=== PATIENT | male | born 1950 | race Caucasian/White ===

== ENCOUNTER 2017-08-13 06:50 | Inpatient (IN) ==
[2017-08-07 13:16] LABS: Appearance,Urine CLEAR; Bilirubin,Urine NEG (NEG); Color,Urine YELLOW; Glucose,Urine (UA) NEGATIVE (NEG); Leukocyte Esterase,Urine NEG /uL (NEG); Nitrate,Urine NEG (NEG); Protein,Urine NEG (NEG); Specific Gravity,Urine 1.009 (1.000-1.035); Urine Blood NEG mg/dL (<0.03); Urobilinogen,Urine NEG (NEG)
[2017-08-07 14:00] LABS: Basophils # (Auto) 0 K/mcL (0.0-0.3); Basophils % (Auto) 0.2 % (0.0-2.0); Eosinophils # (Auto) 0.1 K/mcL (0.0-0.7); Eosinophils % (Auto) 0.7 % (0.0-7.0); Granulocytes % (Auto) 82.8 % (38.0-78.0); Lymphocytes # (Auto) 0.8 K/mcL (1.5-4.8); Lymphocytes % (Auto) 9.6 % (15.5-49.0); Mean Cell Volume 98.2 fL (80.0-100.0); Mean Corpuscular HGB Conc 33.9 g/dL (31.0-36.0); Mean Corpuscular Hemoglobin 33.3 pg (26.0-34.0); Monocytes # (Auto) 0.5 K/mcL (0.1-0.9); Monocytes % (Auto) 6.7 % (1.0-12.0); Platelet Count 172 K/mcL (140-440); RBC 4.44 M/mcL (4.50-5.90); Red Cell Distribution Width 15.6 % (11.5-14.5)
[2017-08-07 14:17] LABS: Blood Urea Nitrogen 31 mg/dl (8-23)
[~2017-08-13 06:50] MED LIST: ACETAMINOPHEN 500 MG TABLET PO SCH; CELECOXIB 200 MG CAPSULE PO SCH; PREGABALIN 75 MG CAPSULE PO SCH; ceFAZolin 1 GM VIAL IV SCH; oxyCODONE 10 MG TAB.ER.12H PO SCH
[2017-08-13] MEDS ORDERED: IPRATROPIUM/ALBUTEROL 3 ML AMPUL.NEB NEB ONE (09:16)
[2017-08-13] MEDS ORDERED: GENTAMICIN SULFATE 800 MG/20 ML VIAL IR ONE (09:18)
[2017-08-13] MEDS ORDERED: LIDOCAINE HCL/PF 100 MG/5 ML SYRINGE IV ONE (09:46)
[2017-08-13] MEDS ORDERED: fentaNYL 100 MCG/2 ML VIAL IV ONE (09:46)
[2017-08-13] MEDS ORDERED: PHENYLEPHRINE 10 MG/ML VIAL IV ONE (09:46)
[2017-08-13] MEDS ORDERED: TRANEXAMIC ACID 1,000 MG/10 ML VIAL IV ONE (09:46)
[2017-08-13] MEDS ORDERED: MIDAZOLAM 5 MG/5 ML VIAL IV ONE (09:46)
[2017-08-13] MEDS ORDERED: GLYCOPYRROLATE 0.2 MG/ML VIAL IV ONE (09:46)
[2017-08-13] MEDS ORDERED: ePHEDrine 50 MG/ML AMPUL IV ONE (09:46)
[2017-08-13] MEDS ORDERED: PROPOFOL 200 MG/20 ML VIAL IV ONE (09:46)
[2017-08-13] MEDS ORDERED: SUCCINYLCHOLINE 20 MG/ML ML IV ONE (09:46)
[2017-08-13] MEDS ORDERED: BUPIVACAINE PF 0.5% 30 ML VIAL IJ ONE (10:50)
[2017-08-13] MEDS ORDERED: fentaNYL 100 MCG/2 ML VIAL IV PRN (10:52)
[2017-08-13] MEDS ORDERED: PROMETHAZINE 25 MG/ML VIAL IV PRN (10:52)
[2017-08-13] MEDS ORDERED: IPRATROPIUM/ALBUTEROL 3 ML AMPUL.NEB NEB PRN (10:52)
[2017-08-13] MEDS ORDERED: MEPERIDINE 25 MG/ML SYRINGE IV PRN (10:52)
[2017-08-13] MEDS ORDERED: ePHEDrine 50 MG/ML AMPUL IV PRN (10:52)
[2017-08-13] MEDS ORDERED: diphenhydrAMINE 50 MG/ML VIAL IV PRN (10:52)
[2017-08-13] MEDS ORDERED: ATROPINE SULFATE 0.4 MG/ML VIAL IV PRN (10:52)
[2017-08-13] MEDS ORDERED: ACETAMINOPHEN 1,000 MG/100 ML BOTTLE IV ONE (10:52)
[2017-08-13] MEDS ORDERED: METOPROLOL TARTRATE 5 MG/5 ML VIAL IV PRN (10:52)
[2017-08-13] MEDS ORDERED: METHOCARBAMOL 1,000 MG/10 ML VIAL IV PRN (10:52)
[2017-08-13] MEDS ORDERED: ONDANSETRON 4 MG/2 ML VIAL IV PRN ×2 (10:52→10:54)
[2017-08-13] MEDS ORDERED: BENZOCAINE/MENTHOL 1 LOZENGE PO PRN ×2 (10:52→10:54)
[2017-08-13] MEDS ORDERED: FLUMAZENIL 0.1 MG/ML ML IV PRN (10:52)
[2017-08-13] MEDS ORDERED: NALOXONE HCL 0.4 MG/ML VIAL IV PRN (10:52)
[2017-08-13] MEDS ORDERED: POLYETHYLENE GLYCOL 3350 17 GM PACKET PO PRN (10:54)
[2017-08-13] MEDS ORDERED: FLEETS ADULT ENEMA PR PRN (10:54)
[2017-08-13] MEDS ORDERED: TRANEXAMIC ACID 1,000 MG/10 ML VIAL IV SCH (10:54)
[2017-08-13] MEDS ORDERED: MAGNESIUM HYDROXIDE 30 ML ORAL.SUSP PO PRN (10:54)
[2017-08-13] MEDS ORDERED: KETOROLAC 15 MG/ML VIAL IV PRN (10:54)
[2017-08-13] MEDS ORDERED: ACETAMINOPHEN 325 MG TABLET PO PRN (10:54)
[2017-08-13] MEDS ORDERED: BISACODYL 10 MG SUPP.RECT PR PRN (10:54)
[2017-08-13] MEDS ORDERED: HYDROmorphone 2 MG/ML SYRINGE IV PRN (10:54)
--- NOTE | 2017-08-13 10:54 | Brief Operative Note ---
Date of procedure: 08/13/17 Pre-op diagnosis: left shoulder rca and bicep tenodon tear Post-op diagnosis: same Procedure: Left shoulder reverse tsa and bicep tenodesis Grafts/Implants: Yes Anesthesia: GETA Complications: none Complications Description: 08/13/17 10:53 none Surgeon: Cali Mendez Hammer Driver: Donovan Pendleton Estimated blood loss (cc): 50 Tourniquet Time (Minutes): 0 Specimens Removed/Pathology: none sent Condition: stable Disposition: PACU
[2017-08-13] MEDS ORDERED: BACLOFEN 10 MG TABLET PO PRN (10:58)
[2017-08-13] MEDS ORDERED: NAPROXEN 500 MG TABLET PO PRN (10:58)
[2017-08-13] MEDS ORDERED: CETIRIZINE 10 MG TABLET PO PRN (10:58)
[2017-08-13] MEDS ORDERED: LACTATED RINGERS 1,000 ML IV SCH (11:00)
[2017-08-13] MEDS: 0.45 % SODIUM CHLORIDE 1,000 ML IV SCH ×2 (11:58→21:38)
[2017-08-13] MEDS: 0.9 % SODIUM CHLORIDE 10 ML SYRINGE IV SCH ×2 (12:09→22:00)
--- NOTE | 2017-08-13 12:20 | XRay Report ---
CLINICAL INFORMATION: Postop total shoulder COMPARISON: None. FINDINGS: Total shoulder prostheses is anatomically aligned. No osseous abnormality. Periarticular gas and soft tissue thickening seen as expected IMPRESSION: Negative Interpreted and Authenticated by: Isidoro Olson 08/13/17
[2017-08-13] MEDS: HYDROcodone/APAP 10/325MG TABLET PO PRN ×3 (12:38→23:14)
--- NOTE | 2017-08-13 16:04 | Operative Note ---
DATE OF OPERATION: 08/13/2017 PREOPERATIVE DIAGNOSIS: Left shoulder rotator cuff arthropathy with biceps tendinopathy and tears. POSTOPERATIVE DIAGNOSIS: Left shoulder rotator cuff arthropathy with biceps tendinopathy and tears. PROCEDURE: Left reverse total shoulder with a biceps tenodesis. SURGEON: Cali Mendez M.D. OUTDOOR STUDIES DIRECTOR: Donovan Pendleton PA-C. ANESTHESIA: General LMA anesthesia with Hayley Gomez CRNA. ESTIMATED BLOOD LOSS: About 50 mL. COMPLICATIONS: None. IMPLANTS: Per nurse's note. These were [place] reverse total shoulder components. DESCRIPTION OF PROCEDURE: The patient was brought to the operating room and put to sleep with general LMA anesthesia. Once asleep, the patient had the left shoulder sterilely prepped and draped in the usual sterile fashion. Timeout was performed and confirmed as the operative site and the procedure, both by initials, consent form and x-rays. Once this was done, we then proceeded with a deltopectoral approach to the shoulder, retracted the deltoid laterally and exposed the anterior portion of the shoulder. This revealed the biceps tendon to be completely dislocated from the bicipital groove. The subscap was released and tagged and the biceps tendon and harvested and repaired to the pectoralis major. Once this had been done, we proceeded with releasing the capsule inferiorly around the humeral head, releasing the capsule and palpating the axillary nerve to make sure it was intact. Once this was done, we then dislocated the humeral head and made our cut at the surgical neck region. Once the ball had been removed, we placed a metal plate over the humerus and subluxed this inferiorly and posteriorly. We then placed retractors around the glenoid and removed the labrum and capsule around the glenoid. We placed a 10-degree inclination pin centrally. Once done, we then reamed up to the size 40, implanted a metaglene with a central screw measuring 28 mm. Superior and inferior screws measured 28 and anterior screw measured 32. All screws were locked. We placed into place a 40 mm with 2 mm of eccentricity and offset. This was tapped into place. Once locked into place, we irrigated thoroughly and then prepared the humerus. This was reamed up to a size a 12. A 12 stem was implanted with a +8 poly. This seemed to be the most appropriate. The final implants placed. We irrigated thoroughly, took the shoulder through range of motion, very stable. We irrigated thoroughly and then repaired the deltopectoral interval with 2-0 Vicryl, closed the skin with 2-0 Vicryl and adhesive glue. Sterile bandage was applied. A Donjoy sling was fitted and given to the patient. MAKAYLA:amandeep Job ID: [id number] Doc ID: [id number] Cali Mendez MD
[2017-08-13] MEDS: ceFAZolin 1 GM VIAL IV SCH (17:23)
[2017-08-13] MEDS: HYDROCHLOROTHIAZIDE 12.5 MG CAPSULE PO SCH (20:02)
[2017-08-13] MEDS: DOCUSATE SODIUM 100 MG CAPSULE PO SCH (20:02)
[2017-08-13] MEDS: LISINOPRIL 20 MG TABLET PO SCH (20:02)
[2017-08-13] MEDS ORDERED: SENNOSIDES 1 TABLET PO SCH (21:00)
[2017-08-13] MEDS ORDERED: TEMAZEPAM 15 MG CAPSULE PO PRN (21:00)
[2017-08-13] MEDS ORDERED: amLODIPine 5 MG TABLET PO SCH (21:00)
[2017-08-14] MEDS: ceFAZolin 1 GM VIAL IV SCH (00:56)
[2017-08-14] MEDS: HYDROcodone/APAP 10/325MG TABLET PO PRN ×2 (05:04→09:57)
[2017-08-14] MEDS: 0.9 % SODIUM CHLORIDE 10 ML SYRINGE IV SCH (05:19)
--- NOTE | 2017-08-14 07:36 | Orthopedic Progress Note ---
Subjective Patient information: Note initiated : 08/14/17 at 7:35 am Service Date, if different from initiated Date: [] Patient: Vin Silverman 67 y/o M admitted on 08/13/17 for Reverse Total Shoulder Arthroplasty with Bicep Ten. Chief Complaint: [Pt is stable this morning on post operative day 1 without any significant concerns or complaints. Patients vital signs have remained stable. Patients dressing is dry and exhibits a grossly intact neurovascular and neuromotor exam. Patients 10 point ROS is otherwise negative. ] Objective Vital signs: Vital Signs Temp Pulse Resp BP Pulse Ox 08/14/17 03:46 98.0 F 68 16 149/81 95 08/13/17 23:25 98.2 F 73 16 132/74 94 08/13/17 20:00 97.7 F 80 16 129/73 94 08/13/17 15:45 95 08/13/17 15:07 136/74 95 08/13/17 14:21 144/78 95 08/13/17 13:55 136/63 95 08/13/17 11:44 97.6 F 63 10 L 115/70 100 08/13/17 11:39 62 14 112/66 100 08/13/17 11:34 58 L 14 109/60 98 08/13/17 11:29 54 L 12 98/56 100 08/13/17 11:24 61 12 86/54 100 08/13/17 11:19 97.3 F 61 9 L 84/55 100 08/13/17 11:14 97.3 F 63 9 L 91/55 99 Intake and Output 08/13/17 08/14/17 08/14/17 21:59 05:59 13:59 Intake Total 2567 / 2567 450 / 450 Output Total 775 / 775 1974 Balance 1792 / 1792 -1525 / -1525 Intake: IV 967 / 967 Sodium Chloride 0.45% 1,000 ml 967 / 967 @ 100 mls/hr IV .Q10H [facility] Rx#: [id number] Oral 1600 / 1600 450 / 450 Output: Void Amount 775 / 775 1974 Other: Meal Dinner Percent of Meal Consumed 100% Weight 186 lb 6.4 oz Intake & Output: Intake & Output 08/13/17 08/14/17 08/14/17 21:59 05:59 13:59 Intake Total 2567 / 2567 450 / 450 Output Total 775 / 775 1974 Balance 1792 / 1792 -1525 / -1525 Weight 186 lb 6.4 oz Intake: IV 967 / 967 Sodium Chloride 0.45% 1,000 ml 967 / 967 @ 100 mls/hr IV .Q10H [facility] Rx#: [id number] Oral 1600 / 1600 450 / 450 Output: Void Amount 775 / 775 1974 Other: Meal Dinner Percent of Meal Consumed 100% Incision: Yes healing Incision clean and dry: Yes Dressing: Yes clean, Yes dry Weight bearing status: partial Neurological exam IM: Yes motor sensory intact, Yes neurovascular intact Extremities exam IM: Yes neurovascular intact - Labs CBC & BMP: 08/07/17 11:21 08/07/17 11:21 Labs: Orthopedic Labs 08/07/17 11:21 PT 13.3 INR 1.0 APTT 30 08/07/17 11:21 Hgb 14.8 Hct 43.6 Assessment and Plan (1) Hx of total shoulder replacement The patient has been educated regarding dressing care, Physical Therapy recommendations, home exercises, restrictions, and follow up appointments. The patient has had all necessary DME prescribed. The patient has remained stable during their hospital course. The patient was discharge with a stable exam. Status: Acute
--- NOTE | 2017-08-14 07:39 | Discharge Summary ---
Ortho Discharge - TSA - Patient Instructions Diet: Regular Diet Activity: activity as tolerated, weight bearing as tolerated Total Shoulder Protocol: Leave immobilizer in place except for bathing and ROM. Abduction pillow. Continue to wear sling until seen by physician. [place]man Pendulum : These exercises use momentum produced by your body to move your shoulder joint. Bend your knees and shift your weight to your front leg, then back, allowing your arm to swing in the same directions. Using the same technique, alternately shift your weight between your right and left legs, allowing your arm to swing from side to side. These exercises are also performed in counterclockwise and clockwise circular motions. Typically these exercises are performed several times per day, for a set number repetitions or minutes, such as 20 times in a row or 5 minutes at a time. Dressing Care: May shower in 2 days Patient Education: Shoulder Arthroplasty (DC) Additional Instructions: Discharge Instructions: Resume home diet as tolerated. Follow up with [facility] on 08/28 at 1:10 pm. Weight bearing at 25%. Do the exercises at home that physical therapy gave you. Use your Cryocuff or ice packs as directed, on for 20 minutes at a time throughout the day. This and elevation will help with pain and swelling If you have the Aquacel Ag dressing, leave in place for 7 days then remove. If dressing becomes soiled (turns black), remove and use gauze 4x4 dressing and silvasorb ointment and change daily. Keep incision clean and dry. If you have Dermabond (a dressing with a mesh-like appearance), leave open to air. You may start showering on post op day #2. The Dermabond dressing can get wet, do not scrub dressing. Pat dry. To avoid constipation while taking any narcotic pain medication, take an over the counter stool softener/laxative. Take your prescription to garbage pick up worker any medication or equipment (such as walker, crutches, toilet riser or C.P.M.) Your prescriptions are with your discharge information. Some medications were electronically transmitted to your pharmacy of choice. Return to ER for uncontrolled pain, unable to go to the bathroom, nausea and/or vomiting, chills, fever, dizziness, shortness of breath, chest pain, signs of infection, redness, swelling, excessive bleeding. - Problem Maintenance (1) Hx of total shoulder replacement Status: Acute - Follow Up Plan Follow Up Appointments: Cali Mendez MD [Physician] - 08/28/17 1:10 pm Disposition: Home, Self-Care Prognosis: Good Rehab Potential: Good I certify that the patient requires SNF services: No Overall status at discharge: patient is progressing back to baseline - Orders For Discharge Prescriptions: Docusate Sodium [Colace] 100 mg PO BID #60 cap HYDROcodone/APAP 10/325MG [[place] 10/325Mg] 1 - 2 tab PO Q4HP PRN #75 tab PRN Reason: Pain Level 3-6
[2017-08-14] MEDS: LISINOPRIL 20 MG TABLET PO SCH (08:24)
[2017-08-14] MEDS: DOCUSATE SODIUM 100 MG CAPSULE PO SCH (08:24)
[2017-08-14] MEDS: HYDROCHLOROTHIAZIDE 12.5 MG CAPSULE PO SCH (08:24)
[2017-08-14] MEDS ORDERED: ASPIRIN 325 MG ENTERIC COATED TABLET PO SCH (09:00)
[2017-08-14] MEDS ORDERED: FISH OIL 1,000 MG CAPSULE PO SCH (09:00)
[2017-08-14] MEDS ORDERED: ATENOLOL 50 MG TABLET PO SCH (09:00)
== END 2017-08-14 10:05 | disposition home or self-care (01) | DRG 483 ==
LOC: MEDSUR 06:50
PROVIDERS: ADMIT Orthopaedic Surgery; ATTEND Orthopaedic Surgery

== ENCOUNTER 2018-01-28 04:43 | Inpatient (IN) ==
[2018-01-22 15:01] LABS: Appearance,Urine CLEAR; Bilirubin,Urine NEG (NEG); Color,Urine YELLOW; Glucose,Urine (UA) NEGATIVE (NEG); Leukocyte Esterase,Urine NEG /uL (NEG); Protein,Urine NEG (NEG); Specific Gravity,Urine 1.013 (1.000-1.035); Urine Blood NEG mg/dL (<0.03); Urobilinogen,Urine NEG (NEG)
[2018-01-22 15:23] LABS: Blood Urea Nitrogen 23 mg/dl (8-23)
[2018-01-22 15:28] LABS: Basophils # (Auto) 0 K/mcL (0.0-0.3); Basophils % (Auto) 0.6 % (0.0-2.0); Eosinophils # (Auto) 0.1 K/mcL (0.0-0.7); Eosinophils % (Auto) 1.8 % (0.0-7.0); Granulocytes % (Auto) 68.7 % (38.0-78.0); Lymphocytes # (Auto) 1.5 K/mcL (1.5-4.8); Lymphocytes % (Auto) 21.3 % (15.5-49.0); Mean Cell Volume 94.8 fL (80.0-100.0); Mean Corpuscular HGB Conc 33.7 g/dL (31.0-36.0); Monocytes # (Auto) 0.5 K/mcL (0.1-0.9); Monocytes % (Auto) 7.6 % (1.0-12.0); Platelet Count 233 K/mcL (140-440); RBC 5.17 M/mcL (4.50-5.90)
[2018-01-28] MEDS ORDERED: PREGABALIN 75 MG CAPSULE PO SCH (07:00)
[2018-01-28] MEDS ORDERED: KETOROLAC 30 MG, ROPIVACAINE HCL/PF 49.5 ML, EPINEPHrine 0.5 MG, 0.9 % SODIUM CHLORIDE ... IJ SCH (07:00)
[2018-01-28] MEDS ORDERED: CELECOXIB 200 MG CAPSULE PO SCH (07:00)
[2018-01-28] MEDS ORDERED: ACETAMINOPHEN 500 MG TABLET PO SCH (07:00)
[2018-01-28] MEDS ORDERED: ceFAZolin 1 GM VIAL IV SCH (07:00)
[2018-01-28] MEDS ORDERED: oxyCODONE 10 MG TAB.ER.12H PO SCH (07:00)
[2018-01-28] MEDS ORDERED: DEXAMETHASONE 10 MG/ML VIAL IV ONE (07:45)
[2018-01-28] MEDS ORDERED: PROPOFOL 200 MG/20 ML VIAL IV ONE (07:45)
[2018-01-28] MEDS ORDERED: ROPIVACAINE HCL/PF 20 ML VIAL IJ ONE (07:45)
[2018-01-28] MEDS ORDERED: GLYCOPYRROLATE 0.2 MG/ML VIAL IV ONE (07:45)
[2018-01-28] MEDS ORDERED: MIDAZOLAM 5 MG/5 ML VIAL IV ONE (07:45)
[2018-01-28] MEDS ORDERED: ONDANSETRON 4 MG/2 ML VIAL IV ONE (07:45)
[2018-01-28] MEDS ORDERED: LIDOCAINE HCL/PF 100 MG/5 ML SYRINGE IV ONE (07:45)
[2018-01-28] MEDS ORDERED: ePHEDrine 50 MG/ML AMPUL IV ONE (07:45)
[2018-01-28] MEDS ORDERED: GENTAMICIN SULFATE 800 MG/20 ML VIAL IR ONE (08:01)
[2018-01-28] MEDS ORDERED: ONDANSETRON 4 MG/2 ML VIAL IV PRN ×2 (08:48→09:18)
[2018-01-28] MEDS ORDERED: LACTATED RINGERS 250 ML IV PRN (08:48)
[2018-01-28] MEDS ORDERED: MEPERIDINE 25 MG/ML SYRINGE IV PRN (08:48)
[2018-01-28] MEDS ORDERED: diphenhydrAMINE 50 MG/ML VIAL IV PRN (08:48)
[2018-01-28] MEDS ORDERED: IPRATROPIUM/ALBUTEROL 3 ML AMPUL.NEB NEB PRN (08:48)
[2018-01-28] MEDS ORDERED: FLUMAZENIL 0.1 MG/ML ML IV PRN (08:48)
[2018-01-28] MEDS ORDERED: NALOXONE HCL 0.4 MG/ML VIAL IV PRN (08:48)
[2018-01-28] MEDS ORDERED: PROMETHAZINE 25 MG/ML VIAL IV PRN (08:48)
[2018-01-28] MEDS ORDERED: fentaNYL 100 MCG/2 ML VIAL IV PRN (08:48)
[2018-01-28] MEDS ORDERED: BENZOCAINE/MENTHOL 1 LOZENGE PO PRN ×2 (08:48→09:18)
[2018-01-28] MEDS ORDERED: LACTATED RINGERS 1,000 ML IV SCH (09:00)
[2018-01-28] MEDS ORDERED: HYDROmorphone 2 MG/ML VIAL IV PRN (09:18)
[2018-01-28] MEDS ORDERED: FLEETS ADULT ENEMA PR PRN (09:18)
[2018-01-28] MEDS ORDERED: BISACODYL 10 MG SUPP.RECT PR PRN (09:18)
[2018-01-28] MEDS ORDERED: MAGNESIUM HYDROXIDE 30 ML ORAL.SUSP PO PRN (09:18)
[2018-01-28] MEDS ORDERED: TEMAZEPAM 15 MG CAPSULE PO PRN (09:18)
[2018-01-28] MEDS ORDERED: POLYETHYLENE GLYCOL 3350 17 GM PACKET PO PRN (09:18)
[2018-01-28] MEDS ORDERED: ACETAMINOPHEN 325 MG TABLET PO PRN (09:18)
[2018-01-28] MEDS ORDERED: TRANEXAMIC ACID 1,000 MG/10 ML VIAL IV ONE (09:18)
--- NOTE | 2018-01-28 09:18 | Brief Operative Note ---
Date of procedure: 01/28/18 Pre-op diagnosis: right knee djd severe Post-op diagnosis: same Procedure: right robotic tka Grafts/Implants: Yes Anesthesia: CYNDIEA Surgeon: Cali Mendez Stem Dryer Maintainer: Donovan Pendleton Estimated blood loss (cc): 20 Tourniquet Time (Minutes): 53 Specimens Removed/Pathology: none sent Condition: stable Disposition: PACU
[2018-01-28] MEDS ORDERED: CETIRIZINE 10 MG TABLET PO PRN (09:21)
[2018-01-28] MEDS ORDERED: DOCUSATE SODIUM 100 MG CAPSULE PO PRN (09:21)
[2018-01-28] MEDS ORDERED: BACLOFEN 10 MG TABLET PO PRN (09:21)
--- NOTE | 2018-01-28 09:48 | Operative Note ---
DATE OF OPERATION: 01/28/2018 PREOPERATIVE DIAGNOSIS: Right knee degenerative arthritis with valgus malalignment. POSTOPERATIVE DIAGNOSIS: Right knee degenerative arthritis with valgus malalignment. PROCEDURE: Right total knee arthroplasty. SURGEON: Cali Mendez MD CODE ENFORCEMENT SUPERVISOR: Donovan Pendleton PA-C ANESTHESIA: General LMA anesthesia. COMPLICATIONS: None. TOTAL TOURNIQUET TIME: 53 minutes. IMPLANTS PLACED: Per nurse's note. DESCRIPTION OF PROCEDURE: The patient was brought to the operating room and put to sleep with general LMA anesthesia. Once asleep, the patient had the right knee sterilely prepped and draped in the usual sterile fashion. Once sterilely prepped and draped, the right knee was confirmed as the operative site. A midline incision was made, mid vastus approach performed. Severe valgus alignment and patellar subluxation was noted. With this, we then measured the patella, it was 18 mm. This was cut to 14 and then a 33 mm patellar button placed, a small chamfer laterally and we removed the legal recovery specialist patella. Once this was done, we irrigated thoroughly and then prepared the rest of the knee, two pins above and below the knee and registered the center of hip rotation medial and lateral malleolus and 30 points on the femur and tibia. Once we balanced the knee, we then went ahead with the robot and made our tibial cut and femoral cuts. Bony fragments were removed, the remnants of the meniscus removed and osteophytes posteriorly removed. We irrigated thoroughly. We then tapped into place and alignment was made by the robot to help position these implants. Once done, we placed an 11, which was lacking about 6 degrees of extension. We then went to a 9 mm which put this at 1 degree of flexion. This seemed to give the normal anatomy with 0 degrees of varus valgus. We then cemented into place the above-mentioned trials. We then irrigated thoroughly and cemented into place a 33 mm patellar button. Once this was done, we then closed the mid vastus approach with #1 Stratafix and the skin was closed with 2-0 Vicryl and adhesive closure. The patient tolerated this well. Tourniquet time was 53 minutes. RBH:suzette Job ID: [id number] Doc ID: [id number] Cali Mendez MD
[2018-01-28] MEDS: 0.45 % SODIUM CHLORIDE 1,000 ML IV SCH ×2 (10:24→20:26)
--- NOTE | 2018-01-28 10:24 | XRay Report ---
CLINICAL INFORMATION: Postop total knee prostheses COMPARISON: None. FINDINGS: Total knee prostheses is anatomically aligned. No osseous abnormality. Periarticular soft tissue swelling seen as expected IMPRESSION: Negative Interpreted and Authenticated by: Isidoro Olson 01/28/18
[2018-01-28] MEDS: KETOROLAC 15 MG/ML VIAL IV SCH ×3 (13:57→23:40)
[2018-01-28] MEDS: 0.9 % SODIUM CHLORIDE 10 ML SYRINGE IV SCH ×2 (17:00→22:05)
[2018-01-28] MEDS: HYDROcodone/APAP 10/325MG TABLET PO PRN ×2 (17:10→22:04)
[2018-01-28] MEDS: ceFAZolin 1 GM VIAL IV SCH ×2 (17:24→23:35)
[2018-01-28] MEDS ORDERED: NAPROXEN 250 MG TABLET PO PRN (17:30)
[2018-01-28] MEDS: FERROUS SULFATE 325 MG TABLET PO SCH (18:54)
[2018-01-28] MEDS: DOCUSATE SODIUM 100 MG CAPSULE PO SCH (20:26)
[2018-01-28] MEDS: ASPIRIN 325 MG ENTERIC COATED TABLET PO SCH (20:27)
[2018-01-28] MEDS ORDERED: amLODIPine 5 MG TABLET PO SCH (21:00)
[2018-01-28] MEDS ORDERED: SENNOSIDES 1 TABLET PO SCH (21:00)
[2018-01-28] MEDS ORDERED: AMITRIPTYLINE 25 MG TABLET PO SCH (21:00)
[2018-01-28] MEDS ORDERED: ATORVASTATIN 20 MG TABLET PO SCH (21:00)
[2018-01-28] MEDS ORDERED: LISINOPRIL/HCTZ 20/12.5MG TABLET PO SCH (21:00)
[2018-01-29] MEDS: KETOROLAC 15 MG/ML VIAL IV SCH (05:48)
[2018-01-29] MEDS: 0.9 % SODIUM CHLORIDE 10 ML SYRINGE IV SCH (05:50)
[2018-01-29] MEDS: 0.45 % SODIUM CHLORIDE 1,000 ML IV SCH (06:24)
[2018-01-29] MEDS ORDERED: LEVOTHYROXINE 88 MCG TABLET PO SCH (07:30)
--- NOTE | 2018-01-29 07:33 | Orthopedic Progress Note ---
Subjective Patient information: Note initiated : 01/29/18 at 7:31 am Service Date, if different from initiated Date: [] Patient: Vin Silverman 67 y/o M admitted on 01/28/18 for Total Knee Arthroplasty - Paul - Right. Chief Complaint: [Pt is stable this morning on post operative day 1 without any significant concerns or complaints. Patients vital signs have remained stable. Patients dressing is dry and is grossly instact from a neurovascular and motor standpoint. Patients 10 point ROS is otherwise negative. ] Objective Vital signs: Vital Signs Temp Pulse Resp BP Pulse Ox 01/29/18 06:46 98 F 18 127/75 92 01/29/18 04:00 97.8 F 66 14 100/58 93 01/28/18 23:21 97.8 F 78 14 110/65 91 01/28/18 23:00 91 01/28/18 19:44 99.0 F H 100 H 14 135/62 90 01/28/18 19:00 90 01/28/18 15:36 97.8 F 16 137/65 95 01/28/18 15:34 95 01/28/18 13:15 119/80 95 01/28/18 12:17 127/77 95 01/28/18 11:47 118/69 95 01/28/18 11:16 115/77 96 01/28/18 11:00 132/76 94 01/28/18 10:45 134/84 93 01/28/18 10:30 132/81 93 01/28/18 10:15 134/83 94 01/28/18 10:03 97.4 F 67 14 120/75 98 01/28/18 09:55 97.4 F 66 14 121/86 98 01/28/18 09:50 69 17 106/74 99 01/28/18 09:45 70 10 L 124/93 99 01/28/18 09:40 97.4 F 61 10 L 114/68 99 01/28/18 09:35 61 8 L 102/58 97 01/28/18 09:26 97.3 F 64 8 L 93/58 95 Intake and Output 01/28/18 01/29/18 01/29/18 21:59 05:59 13:59 Intake Total 2200 / 2200 1200 / 1200 Output Total 1800 / 1800 2800 / 2800 Balance 400 / 400 -1600 / -1600 Intake: IV 1000 / 1000 Sodium Chloride 0.45% 1,000 ml 1000 / 1000 @ 100 mls/hr IV .Q10H [facility] Rx#: [id number] Oral 1200 / 1200 1200 / 1200 Output: Urine Catheter Amount 1000 / 1000 Void Amount 800 / 800 2800 / 2800 Other: Meal Dinner Percent of Meal Consumed 100% # Voids 2 Weight 190 lb Intake & Output: Intake & Output 01/28/18 01/29/18 01/29/18 21:59 05:59 13:59 Intake Total 2200 / 2200 1200 / 1200 Output Total 1800 / 1800 2800 / 2800 Balance 400 / 400 -1600 / -1600 Weight 190 lb Intake: IV 1000 / 1000 Sodium Chloride 0.45% 1,000 ml 1000 / 1000 @ 100 mls/hr IV .Q10H [facility] Rx#: [id number] Oral 1200 / 1200 1200 / 1200 Output: Urine Catheter Amount 1000 / 1000 Void Amount 800 / 800 2800 / 2800 Other: Meal Dinner Percent of Meal Consumed 100% # Voids 2 Incision: Yes healing Incision clean and dry: Yes Dressing: Yes clean Neurological exam IM: Yes motor sensory intact, Yes neurovascular intact Extremities exam IM: Yes Foot pink and warm, Yes neurovascular intact - Labs CBC & BMP: 01/22/18 12:09 01/22/18 12:09 Labs: Orthopedic Labs 01/22/18 12:09 PT 13.0 INR 1.0 APTT 33 01/22/18 12:09 Hgb 16.5 Hct 49.0 Assessment and Plan (1) Hx of total knee arthroplasty The patient has been educated regarding dressing care, Physical Therapy recommendations, home exercises, restrictions, and follow up appointments. The patient has had all necessary DME prescribed. The patient has remained relatively stable during their hospital course. I consulted with Dr Mendez regarding her O2 concerns as well as if he wants a Hospitalist Consult for her. Status: Acute (2) Hx of total knee arthroplasty Status: Acute
--- NOTE | 2018-01-29 07:35 | Discharge Summary ---
Ortho Discharge - TKA - Patient Instructions Diet: Regular Diet Activity: activity as tolerated, weight bearing as tolerated Total Knee Protocol: For Total Knee: Start ROM KATIE with stationary bike or rocking chair. Work on gaining full extension of knee. Posterior dislocation precautions provided. Hip abductor strengthening and gait training instructions provided. Apply Cryocuff as instructed. Dressing Care: May shower in 2 days Additional Instructions: CPM for home use - Problem Maintenance (1) Hx of total knee arthroplasty Status: Acute (2) Hx of total knee arthroplasty Status: Acute - Follow Up Plan Follow Up Appointments: Cali Mendez MD [Physician] - 02/12/18 10:00 am Disposition: Home, Self-Care Prognosis: Good Rehab Potential: Good I certify that the patient requires SNF services: No Overall status at discharge: patient is progressing back to baseline - Orders For Discharge Prescriptions: Aspirin [Ecotrin] 325 mg PO BID #60 tab.ec Docusate Sodium [Colace] 100 mg PO BID #60 cap HYDROcodone/APAP 10/325MG [[place] 10-325Mg] 1 - 2 tab PO Q4HP PRN #75 tab PRN Reason: Pain Level 3-6
[2018-01-29] MEDS: FERROUS SULFATE 325 MG TABLET PO SCH (08:57)
[2018-01-29] MEDS: HYDROcodone/APAP 10/325MG TABLET PO PRN (08:58)
[2018-01-29] MEDS: DOCUSATE SODIUM 100 MG CAPSULE PO SCH (08:58)
[2018-01-29] MEDS: ASPIRIN 325 MG ENTERIC COATED TABLET PO SCH (08:58)
[2018-01-29] MEDS ORDERED: LISINOPRIL 20 MG TABLET PO SCH (09:00)
[2018-01-29] MEDS ORDERED: HYDROCHLOROTHIAZIDE 12.5 MG CAPSULE PO SCH (09:00)
[2018-01-29] MEDS ORDERED: FISH OIL 1,000 MG CAPSULE PO SCH (09:00)
[2018-01-29] MEDS ORDERED: ASPIRIN 325 MG ENTERIC COATED TABLET PO SCH (09:00)
[2018-01-29] MEDS ORDERED: ATENOLOL 50 MG TABLET PO SCH (09:00)
== END 2018-01-29 10:56 | disposition home or self-care (01) | DRG 470 ==
LOC: MEDSUR 04:43
PROVIDERS: ADMIT Orthopaedic Surgery; ATTEND Orthopaedic Surgery